=== PATIENT | female | born 1995 | race Caucasian/White ===

== ENCOUNTER 2021-09-09 09:55 | Emergency (ER) | payer OTHER ==
[~2021-09-09] VITALS: Ht 167.6 cm; Wt 90.7 kg
--- NOTE | ~2021-09-09 | EMS ---
[address] [address] EMS Patient Care Report Name: FABIAN MACHUCA Room #: DEP [place]#: [id number] Admission: 09/09/21 Attend Phys: Discharge: 09/09/21 Date of : [birth year] Report #: [id number] THIS REPORT FOR: //name// Report Transmitted: 09/10/2021 14:40 EMS Care Summary [place], [place]/[facility] Incident [id number] @ 09/09/2021 09:15 Incident Location [address] [place] [id number] Patient FABIAN MACHUCA Female, 26 Years 1995 Patient [address] [place] [id number] Patient History Depression,Cardiac Murmur, Patient Allergies No known allergies, Patient Medications None Reported, Chief Complaint L sided abdominal pain Disposition Transported No Lights/[place] Reason Abdominal Pain/Problems Transported To [facility] Narrative Pt has had L sided abdominal pain that started around midnight. Pt states that pain is a cramping stabbing pain. Pt also is nauseated. Pt states that she has vomited a couple of times. Pt states that she vomited yellow bile. Pt states [address] [address] EMS Patient Care Report Name: FABIAN MACHUCA [facility] #: [id number] Admission: 09/09/21 Attend Phys: Discharge: 09/09/21 Date of : [birth year] Report #: [id number] that she is in [facility] and is due to have another dose in September, Pt denies bleeding or spotting. Upon arrival found pt sitting in chair, A&OX4. Pt transported to [facility]. Maddie menchaca en route. pt care transferred to [facility] ED nursing staff. Initial Vitals @09:35P: 79,R: 20,BP: 117/79,Pain: 6/10,GCS: 15,SpO2: 96,Revised Trauma: 12, @09:46P: 79,R: 20,BP: 122/60,Pain: 6/10,GCS: 15,SpO2: 96,Revised Trauma: 12, Assessments @09:39MENTAL:Person Oriented,Time Oriented,Place Oriented,Event Oriented,SKIN:HEENT:Head/Face: No Abnormalities,Neck/Airway: No Abnormalities,LUNG SOUNDS:Left Upper: Guarding,General: Vomiting,Left Upper: Tenderness,Left Lower: Tenderness,Left Lower: Guarding,General: Nausea,General: Diarrhea,ABDOMEN:Left Upper: Guarding,General: Vomiting,Left Upper: Tenderness,Left Lower: Tenderness,Left Lower: Guarding,General: Nausea,General: Diarrhea,PELVIS//GI:EXTREMITIES:PULSE:NEURO: Impression Abdominal Pain Timeline 09:14,Call Received 09:14,Dispatch Notified 09:15,Dispatched 09:17,En Route 09:29,On Scene 09:31,At Patient 09:35,BP: 117/79 M,PULSE: 79,RR: 20 R,SPO2: 96 Ox,ETCO2: ,BG: ,PAIN: 6,GCS: 15, 09:41,Depart Scene 09:46,BP: 122/60 M,PULSE: 79,RR: 20 R,SPO2: 96 Ox,ETCO2: ,BG: ,PAIN: 6,GCS: 15, 09:52,At Destination 10:04,Call Closed Disclaimer v1.1 Copyright 2020 [employer] This EMS Care Summary contains data elements from the applicable legal record (which may be displayed differently). It is designed to provide pertinent information for the following purposes: continuity of care, clinical quality, and state data reporting. The complete legal record is available to ED staff and administrators of the receiving hospital in [employer]'s Patient Tracker. All data is provided "as is."
[2021-09-09 10:23] LABS: URINE BILIRUBIN NEGATIVE (Negative); URINE BLOOD 3+ (Negative); URINE COLOR YELLOW; URINE GLUCOSE-RANDOM* NEGATIVE (Negative); URINE KETONES TRACE (Negative); URINE PROTEIN (DIPSTICK) 2+ (Negative); URINE SPECIFIC GRAVITY >= 1.030 (1.005-1.035)
[2021-09-09 10:24] LABS: URINE CLARITY CLOUDY; URINE LEUKOCYTES-REFLEX 3+ (Negative); URINE NITRITE-REFLEX POSITIVE (Negative)
[2021-09-09 10:28] LABS: ABSOLUTE NEUTROPHILS 10.5 thou/uL (1.4-8.2); BASOPHILS 0.2 % (0.0-2.0); HEMATOCRIT 37.7 % (37.0-47.0); HEMOGLOBIN 12.6 gm/dL (12.0-15.0); LYMPHOCYTES 10.5 % (24.0-44.0); MCH 31.8 pg (26.0-34.0); MCHC 33.5 g/dL (28.0-37.0); MCV 94.9 fL (80.0-100.0); MONOCYTES 5.8 % (1.0-8.0); PLATELET COUNT 255 thou/uL (150-400); POLYS 83.5 % (36.0-66.0); RBC 3.97 mil/uL (4.20-5.00); RDW 12.6 % (10.5-14.5); WBC 12.5 thou/uL (4.0-11.0)
[2021-09-09 10:31] LABS: CALCIUM 8.6 mg/dL (8.5-10.1); POTASSIUM 3.6 mmol/L (3.5-5.1)
[2021-09-09 10:37] LABS: ALBUMIN 3.2 g/dL (3.4-5.0); TOTAL BILIRUBIN 0.6 mg/dL (0.2-1.0); TOTAL PROTEIN 7.4 g/dL (6.4-8.2)
[2021-09-09 11:15] LABS: BACTERIA-REFLEX >30 Many /HPF (None Seen); CASTS None Seen /LPF (None Seen); CRYSTALS None Seen /LPF (None Seen); SQUAMOUS 0-3 Few /LPF (0-3); URINE RBC 3-10 Few /HPF (NONE SEEN); URINE WBC-REFLEX >25 Many /HPF (0-5)
[2021-09-09] MEDS ORDERED: BACTRIM DS TAB1 EACH PO (13:11)
[2021-09-09] MEDS ORDERED: NAPROSYN500 MG PO (13:12)
[2021-09-09 13:30] VITALS: BP 115/63
== END 2021-09-09 13:30 | disposition home or self-care (01) ==
LOC: ER 09:55
PROVIDERS: Emergency Medicine
DX: N12 Tubulo-interstitial nephritis, not specified as acute or chronic (principal); F12.90 Cannabis use, unspecified, uncomplicated